=== PATIENT | female | born 1990 | race Caucasian/White ===

== ENCOUNTER 2016-09-07 10:53 | Observation (INO) | payer OTHER ==
[~2016-09-07] VITALS: Ht 167.6 cm; Wt 98.2 kg
[2016-09-07] VITALS (12 sets, daily range): BP systolic 87–122; BP diastolic 45–65; PULSE 87–113; RESP 18–20; O2SAT 96–100
--- NOTE | 2016-09-07 10:58 | ED.REPORT ---
HPI-Fever Date of Service Sep 07, 2016 ED Provider: Abner Villalta MD 26 y/o female 2 months post- presents to the ED via EMS complaining of left arm pain that radiates up her arm to her left breast since this morning. Her pain starts at the site of control implant in her left arm, which she got two weeks ago at [facility]. She was feeling fine until this morning. Her pain is exacerbated with minimal movement of the arm. Associated sx include left arm numbness, left arm swelling, headache, chills, nausea and tingling sensation in the left fingers. The pt also states "I feel very slowed down". The ED nurse described shaking rigors when she first arrived. The pt denies coughing, dysuria and taking antibiotics recently. The EMS recorded axillary temperature of 102 and BP in 130s and administered Zofran en route. The pt had a normal and delivery. Nursing Notes Stated Complaint: FEVER Nursing Notes Reviewed: Yes ([employer], meds not reconciled) Allergies: Coded Allergies: shellfish derived (Verified Allergy, Severe, Hives, 09/07/16) Uncoded Allergies: laundry detergent (Allergy, Severe, hives, throat swelling, 09/07/16) Scheduled Cholecalciferol (Vitamin D3) (Vitamin D3) 2,000 Unit Capsule 2,000 UNIT PO QAM Cyanocobalamin (Vitamin B-12) (Vitamin B-12) 1,000 Mcg Tablet 1,000 MCG PO QAM Fenugreek Seed Extract (Fenugreek) 500 Mg Capsule 500 MG PO QAM Omeprazole Magnesium (Prilosec Otc) 20 Mg Tablet.dr 20 MG PO QAM Pnv No.95/Ferrous Fum/Folic AC ( Multivitamin Tablet) 28 Mg Iron-800 Mcg Tablet 1 EACH PO QAM Sertraline HCl (Sertraline) 50 Mg Tablet 50 MG PO QAM General Time Seen by MD: 10:54 Chief Complaint Other (left arm pain) Hx Obtained From: Patient Arrived By: Ambulance Onset Occurred: 1 - 4 hours ago Symptom Duration: Since onset Quality: Painful (left arm) Radiation: Radiation present (to left breast) Severity: Current: Severe Severity: Maximum: Severe Recent Healthcare: No recent doctor visit Similar Sx Previous: No Past Medical History Past Medical History post depression and anxiety Past Surgical History none reported Smoking History Unknown if Ever Smoker Social History Other Social History: Ambulatory Status Independent Review of Systems Reports: tingling sensation in the left hand Constitutional: Reports: Chills, Fever Respiratory: Denies: Non-productive cough GI: Reports: Nausea, Denies: Vomiting Female: Denies: Dysuria Neurologic: Reports: Headache, Shaking Complete sys rev & neg: except as marked. Musculoskeletal: Reports: Extremity pain (left arm that radiates to left breast ), Extremity swelling (left arm) Physical Exam Initial Vital Signs Vital Signs (First) Date Time Temp Pulse Resp B/P Pulse Ox O2 Delivery O2 Flow Rate FiO2 09/07/16 11:13 38.7 107 20 122/63 97 Room Air Initial VS: Reviewed, Vital signs abnormal Head / Eyes: Atraumatic, Normocephalic Abdomen / GI: Soft, Non-tender, No guarding, No rebound, No distention Extremities: Vascular intact, Neuro intact Psychiatric: Mood/affect normal, Behavior normal, Normal thought content General/Constitutional: Awake, Alert, Not toxic appearing Behavior: Positive: Tearful Fatigued. Nurses described shaking rigors when she first arrived. Respiratory / Chest: Atraumatic, Breath sounds NL, Breath sounds = bilat, No respiratory distress, No rales, No rhonchi, No wheezing Medics noted pt was tachypneic but not in ED. Cardiovascular: Regular rhythm, Heart sounds NL, No murmurs, No rubs Heart Rate / Rhythm: Positive: Tachycardia No edema Upper Extremity / MS: Atraumatic, No deformity, Neurologic intact, Vascular intact Marked tenderness in entire left arm. Painful with any movement. No visible redness or external signs of cellulitis. No crepitus No axillary adenopathy. Interpretation & Diagnostics Interpretation & Diagnostics: Preliminary tech read-ultrasound of the left upper extremity negative for DVT or abscess PROCEDURE: US VENOUS ARM DUPLEX UNILATERAL, LEFT IMPRESSION: No deep venous thrombosis is identified in the left upper extremity. The left internal jugular vein is collapsed. Dictated by: Ralph Lucas M.D. on 09/07/2016 at 12:54 Approved by: Ralph Lucas M.D. on 09/07/2016 at 12:56 Lab Results Interpretation Result Diagram: 09/07/16 1220 09/07/16 1220 Test 09/07/16 11:15 09/07/16 12:20 Urine Color Bloody (YELLOW) Urine Appearance Slightly cloudy Urine pH 7.0 (5.0-8.0) Urine Specific [place] 1.015 (1.003-1.035) Urine Protein Negativemg/dL (NEG,TRACE) Urine Glucose (UA) Negativemg/dL (NEGATIVE) Urine Ketones Negativemg/dL (NEGATIVE) Urine Occult Blood Large (NEGATIVE) Urine Nitrite Negative (NEGATIVE) Urine Bilirubin Negative (NEGATIVE) Urine Urobilinogen Normalmg/dL (NORMAL) Urine Leukocyte Esterase Small (NEGATIVE) Urine RBC >50/hpf (0-2) Urine WBC 6-10/hpf (0-5) Urine Epithelial Cells Occasional/hpf (NONE-MOD) Urine Crystals None seen (NONE SEEN) Urine Bacteria Few/hpf (NONE-FEW) Urine Hyaline Casts None/lpf (NONE) Urine Granular Casts None seen (NONE SEEN) Urine Waxy Casts None seen (NONE SEEN) Urine Red Blood Cell Casts None seen (NONE SEEN) Urine White Blood Cell Casts None seen (NONE SEEN) Urine Mucus None seen (None Seen) Urine Trichomonas None seen (NONE SEEN) Urine Yeast None (NONE SEEN) Urine Culture Reflexed Indicated White Blood Count 12.2th/mm3 (3.8-10.1) Red Blood Count 4.27mil/mm3 (3.90-5.20) Hemoglobin 11.4g/dL (12.0-15.6) Hematocrit 34.4% (35.0-46.0) Mean Corpuscular Volume 80.6fL (81-100) Mean Corpuscular Hemoglobin 26.7pg (27.0-35.0) Mean Corpuscular Hemoglobin Concent 33.1% (32.0-37.0) Red Cell Distribution Width 14.9% (12.3-15.4) Platelet Count 270bil/L (150-400) Neutrophils (%) (Auto) 85.2% (40-74) Lymphocytes (%) (Auto) 6.7% (14-46) Monocytes (%) (Auto) 6.9% (4-12) Eosinophils (%) (Auto) 0.8% (0-5) Basophils (%) (Auto) 0.2% (0-3) Sodium Level 140mEq/L (134-144) Potassium Level 4.0mEq/L (3.5-5.2) Chloride Level 104mEq/L (97-108) Carbon Dioxide Level 18mmol/L (18-29) Blood Urea Nitrogen 11mg/dL (6-20) Creatinine 0.83mg/dL (0.57-1.00) Estimat Glomerular Filtration Rate 117mL/min (>59) Glucose Level 109mg/dL (60-99) Lactic Acid Level 1.9mmol/L (0.4-2.0) Calcium Level 8.9mg/dL (8.5-10.1) Total Bilirubin 0.3mg/dL (0.0-1.2) Aspartate Amino Transf (AST/SGOT) 18U/L (0-50) Alanine Aminotransferase (ALT/SGPT) 17U/L (0-32) Alkaline Phosphatase 118U/L (25-150) Total Protein 6.5g/dL (6.4-8.4) Albumin 3.7g/dL (3.4-5.0) Procalcitonin 0.05ng/mL (0.00-0.08) Lab Results Interpretation: CBC positive leukocytosis CMP normal Lactic acid normal except blood cultures 2 pending UA is , urine does have 6-10 white cells and some blood, no clinical symptoms-culture pending ECG Interpretation ECG Interpretation: Sinus tachycardia. Rate 108. Time: 11:41 Interpreted by: ED physician X-Ray Chest Interpretation Chest Xray Interpretation: IMPRESSION: Negative chest. No acute cardiopulmonary process is evident. Dictated by: Deangelo Mendoza M.D. on 09/07/2016 at 10:32 Approved by: Deangelo Mendoza M.D. on 09/07/2016 at 10:33 View: Portable, 1 view Interpretation / Wet Read by: Interpret - Radiologist Re-Eval/Medical Decision Med Decision/Clinical Course This is a pleasant 26-year-old female who is 2 months presents febrile with possible sepsis via EMS. Patient just recently had a implantable control placed in the left arm in the past roughly 10 days at [place], and did not feel well yesterday, and today developed fever, breaking chills, terrible left arm pain, worse with any movement, and also developed a headache and just felt lousy. She is notably tachycardic, had a fever of 102 axillary in the field, it appeared moderately ill. She received almost 2 L of fluid by EMS, as having rigors on arrival. Hour when I see her, she does not appear toxic-just fatigued. She is tachycardic, no murmurs. Her lungs are clear, abdomen soft nontender, she denies any symptoms or abdominal pain. She has no breast pain or discomfort and she is pumping milk with no signs of mastitis. She has marked discomfort in the left arm. Interestingly I do not appreciate external visible signs of cellulitis, however the area is particularly tender around the insertion site for the control high making a high probability that this is the focus of infection clinically making the patient septic. The no subcutaneous air, no axillary adenopathy, no palpable fluid collection or abscess. An ultrasound was negative for DVT flank abscess. The patient received fluids, but developed hypotension in the department the briefly drop in blood pressure to 80, but was fluid responsive blood pressure back up to 100. Her lactic acid is normal. She does have a leukocytosis. Chest x-ray is negative, urine is underwhelming and is typical -I do not suspect probable urine given the marked symptoms in the left arm clinically point had a localized infection. I talked with the OB on-call, given the patient's frankly septic with febrile, hypotension, leukocytosis the plan is IV a box with Zosyn and vancomycin, the plan inpatient admission to the hospitalist service, and OB will come see and see if they can locally remove the implant. At this point patient has received 3 liters of crystalloid (1st given by EMS, 2nd started by EMS and completed in the ED, 3rd liter given by ED) Source of Hx: Old records Re-Evaluation/Progress : Time of Eval: 12:46 Re-Evaluation/Progress Note: Rechecked pt. Discussed lab results, imaging results, diagnosis and plan to admit. Pt understands and agrees with the plan for admission. All questions addressed. Consultation #1: Referral / Consult Name: Kilo Moya MD Career Services Director: Will see in office, Agrees with eval, Agrees with plan Note: Dr. Moya, OB, recommends giving the pt antibiotics and discharging to follow up in the office to have the implant removed. Consultation #2: Referral / Consult Name: Kilo Moya MD Call Returned at: 12:44 Career Services Director: Will see patient, Agrees with eval, Agrees with plan Note: Dr. Moya informed the pt is hypotensive. He will see her in the hospital. Consultation #3: Referral / Consult Name: Frederick Starr Consulted With: Hospitalist Call Returned at: 13:50 Career Services Director: Will see patient, Agrees with eval, Agrees with plan, Accepts admit Differential Diagnosis: Positive: Cellulitis, Sepsis, Negative: Gastroenteritis, Infected decubitus ulcer, Meningococcemia, Pelvic inflam disease, Pericarditis, Pneumonia, Pyelonephritis Counseled Regarding: Diagnosis, Lab results, Need for admission Discharge & Departure Impression: Primary Impression: Sepsis Sepsis type: sepsis due to unspecified organism Qualified Code: A41.9 - Sepsis, unspecified organism Additional Impression: Soft tissue infection Disposition: ADMITTED TO HOSPITAL Discharge Condition All VS Reviewed: Yes Referrals: [facility] Crit Care Except Billable Proc Time Spent: 30-74 minutes Services Performed: Patient management by me, Time spent at bedside, Reviewing test results, Reviewing imaging, Discussing patient care, Documentation in record, Other Critical Care Notes: Patient became hypotensive (and was already tachycardic and febrile) and required fluid resuscitation Scribe Attestation Portions of this note were transcribed by Tom Lan. I,, personally performed the history, physical exam and medical decision-making;I reviewed and confirmed the accuracy of the information in the transcribed note. Signed by Joel Purcell. 09/07/16 13:54 Abner Villalta MD Sep 07, 2016 10:58 Tom Lan Sep 07, 2016 11:36
--- NOTE | 2016-09-07 11:34 | DRSVH ---
PROCEDURE: X-RAY CHEST ONE VIEW, PORTABLE ([id number]) INDICATIONS: fever TECHNIQUE: One view of the chest was acquired. COMPARISON: None. FINDINGS: Surgical changes and devices: None. Lungs and pleura: No pleural effusions or pneumothorax. Lungs are clear. There may be a few calcif ied granulomas within the right lung. Mediastinum: Mediastinal contours appear normal. Heart size is normal. Bones and chest wall: No suspicious bony lesions. Overlying soft tissues appear unremarkable. IMPRESSION: Negative chest. No acute cardiopulmonary process is evident. Dictated by: Deangelo Mendoza M.D. on 09/07/2016 at 10:32 Approved by: Deangelo Mendoza M.D. on 09/07/2016 at 10:33
[2016-09-07 11:38] LABS: APPEARANCE,URINE SLIGHTLY CLOUDY (CLEAR,HAZY); COLOR,URINE BLOODY (YELLOW)
[2016-09-07 11:39] LABS: OCCULT BLOOD,URINE LARGE (NEGATIVE); UROBILINOGEN,URINE NORMAL (NORMAL)
[2016-09-07] MEDS ORDERED: Ondansetron 2 mg/mL 2 mL Inj IVPUSH ONE (12:05)
[2016-09-07] MEDS: HYDROmorphone 0.5 mg/0.5 mL iSecure Syringe IVPUSH PRN ×2 (12:35→14:23)
[2016-09-07 12:37] LABS: BASOPHILS % (AUTO) 0.2 % (0-3); EOSINOPHILS % (AUTO) 0.8 % (0-5); MONOCYTES % (AUTO) 6.9 % (4-12); Mean Corpuscular Hemoglobin 26.7 pg (27.0-35.0); Mean Corpuscular Volume 80.6 fL (81-100); NEUTROPHILS % (AUTO) 85.2 % (40-74); Platelet Count 270 bil/L (150-400)
[2016-09-07] MEDS ORDERED: Piperacillin-Tazo 3.375 Gm Inj 3.375 GM in Dextrose 5% Minibag Plus 50 ML IV ONE (12:40)
[2016-09-07] MEDS ORDERED: Vancomycin Dose per Pharmacist XX ONE (12:40)
[2016-09-07] MEDS ORDERED: 0.9% Sodium Chloride 1,000 ML IV ONE (12:40)
--- NOTE | 2016-09-07 12:58 | DRSVH ---
PROCEDURE: US VENOUS ARM DUPLEX UNILATERAL, LEFT INDICATIONS: swelling pain LUE ro DVT or abscess (s/p implant) TECHNIQUE: Real-time imaging, as well as color and pulse Doppler interrogation, was performed of the left upper extremity deep veins from the inferior neck to the antecubital fossa. COMPARISON: [facility], CR, XR CHEST 1VW (PORTABLE), 09/07/2016, 11:08. FINDINGS: The internal jugular vein is collapsed. The visualized portions of the subclavian vein, ax illary, and brachial veins are free of intraluminal thrombus. Where physically possible, the veins a re normally compressible. Color and pulse Doppler demonstrate normal intraluminal flow, with expecte d phasicity and pulsatility. Additional scanning of the cephalic and basilic veins of the superficia l system demonstrate normal compressibility, without thrombus. IMPRESSION: No deep venous thrombosis is identified in the left upper extremity. The left internal ju gular vein is collapsed. Dictated by: Ralph Lucas M.D. on 09/07/2016 at 12:54 Approved by: Ralph Lucas M.D. on 09/07/2016 at 12:56
[2016-09-07] MEDS ORDERED: Vancomycin Inj 2,000 MG in 0.9% Sodium Chloride 500 ML IV ONE (13:15)
[2016-09-07] MEDS ORDERED: PNV1TABL PO (13:30)
[2016-09-07] MEDS ORDERED: 0.9% Sodium Chloride 1,000 ML IV SCH (13:30)
[2016-09-07] MEDS ORDERED: CHOL200047 PO (13:30)
[2016-09-07] MEDS ORDERED: FENU500C PO (13:30)
[2016-09-07] MEDS ORDERED: CYAN10008 PO (13:30)
[2016-09-07] MEDS ORDERED: OMEP20TA24 PO (13:30)
[2016-09-07] MEDS ORDERED: SERT50TA9 PO (13:30)
[2016-09-07] MEDS ORDERED: Polyethylene Glycol (PEG) 17 Gm Powder PO PRN (13:55)
[2016-09-07] MEDS ORDERED: Ondansetron 2 mg/mL 2 mL Inj IVPUSH PRN (13:55)
[2016-09-07] MEDS ORDERED: Alum-Mag Hydrox-Simeth 30 mL Suspension PO PRN (13:55)
[2016-09-07] MEDS ORDERED: Vancomycin Dose per Pharmacist XX SCH (14:55)
--- NOTE | 2016-09-07 15:01 | PCM.CONPHA ---
Subjective Date of Service: Sep 07, 2016 Reason for Pharmacy Consult: Vancomycin Dosing Objective Vital Signs Date Time Temp Pulse Resp B/P Pulse Ox O2 Delivery O2 Flow Rate FiO2 09/07/16 14:03 37.2 97 19 111/57 98 Room Air 09/07/16 12:37 38 99 18 87/45 96 Room Air 09/07/16 11:45 38.1 104 20 97/52 97 Room Air 09/07/16 11:18 38.7 113 20 122/63 100 09/07/16 11:13 38.7 107 20 122/63 97 Room Air Weight (Kilograms): 94.09 Height (Feet): 5 Height (Inches): 6 Test 09/07/16 11:15 09/07/16 12:20 Urine Color Bloody (YELLOW) Urine Appearance Slightly cloudy Urine pH 7.0 (5.0-8.0) Urine Specific [place] 1.015 (1.003-1.035) Urine Protein Negativemg/dL (NEG,TRACE) Urine Glucose (UA) Negativemg/dL (NEGATIVE) Urine Ketones Negativemg/dL (NEGATIVE) Urine Occult Blood Large (NEGATIVE) Urine Nitrite Negative (NEGATIVE) Urine Bilirubin Negative (NEGATIVE) Urine Urobilinogen Normalmg/dL (NORMAL) Urine Leukocyte Esterase Small (NEGATIVE) Urine RBC >50/hpf (0-2) Urine WBC 6-10/hpf (0-5) Urine Epithelial Cells Occasional/hpf (NONE-MOD) Urine Crystals None seen (NONE SEEN) Urine Bacteria Few/hpf (NONE-FEW) Urine Hyaline Casts None/lpf (NONE) Urine Granular Casts None seen (NONE SEEN) Urine Waxy Casts None seen (NONE SEEN) Urine Red Blood Cell Casts None seen (NONE SEEN) Urine White Blood Cell Casts None seen (NONE SEEN) Urine Mucus None seen (None Seen) Urine Trichomonas None seen (NONE SEEN) Urine Yeast None (NONE SEEN) Urine Culture Reflexed Indicated White Blood Count 12.2th/mm3 (3.8-10.1) Red Blood Count 4.27mil/mm3 (3.90-5.20) Hemoglobin 11.4g/dL (12.0-15.6) Hematocrit 34.4% (35.0-46.0) Mean Corpuscular Volume 80.6fL (81-100) Mean Corpuscular Hemoglobin 26.7pg (27.0-35.0) Mean Corpuscular Hemoglobin Concent 33.1% (32.0-37.0) Red Cell Distribution Width 14.9% (12.3-15.4) Platelet Count 270bil/L (150-400) Neutrophils (%) (Auto) 85.2% (40-74) Lymphocytes (%) (Auto) 6.7% (14-46) Monocytes (%) (Auto) 6.9% (4-12) Eosinophils (%) (Auto) 0.8% (0-5) Basophils (%) (Auto) 0.2% (0-3) Sodium Level 140mEq/L (134-144) Potassium Level 4.0mEq/L (3.5-5.2) Chloride Level 104mEq/L (97-108) Carbon Dioxide Level 18mmol/L (18-29) Blood Urea Nitrogen 11mg/dL (6-20) Creatinine 0.83mg/dL (0.57-1.00) Estimat Glomerular Filtration Rate 117mL/min (>59) Glucose Level 109mg/dL (60-99) Lactic Acid Level 1.9mmol/L (0.4-2.0) Calcium Level 8.9mg/dL (8.5-10.1) Total Bilirubin 0.3mg/dL (0.0-1.2) Aspartate Amino Transf (AST/SGOT) 18U/L (0-50) Alanine Aminotransferase (ALT/SGPT) 17U/L (0-32) Alkaline Phosphatase 118U/L (25-150) Total Protein 6.5g/dL (6.4-8.4) Albumin 3.7g/dL (3.4-5.0) Procalcitonin 0.05ng/mL (0.00-0.08) Assessment/Plan Assessment/Plan Vancomycin management per pharmacy Indication: Sepsis from implanted control device Trough goal: 15-20 Pertinent info: - Patient is post -- patient has been instructed NOT to breastfeed (pump+ dump) per Dr. Villalta while receiving vancomycin. - Plan to remove implanted device while inpatient. - Patient received vancomycin 2000 mg IV loading dose x1 in ED. Give vancomcyin 1000 mg IV Q8H starting at 2200. This will give a trough of ~15 per pharmacokinetic modeling. Patient is at risk for accumulation due to increased BMI. Vancomycin trough has been scheduled for 09/08/16 at 2130. Pharmacy to continue to monitor and dose vancomcyin. Thank you, Sebas Blackburn Pharmacist Sebas Blackburn Sep 07, 2016 15:01
--- NOTE | 2016-09-07 16:15 | PCM.HPMED ---
Subjective Date of Service Sep 07, 2016 Primary Provider: Admitting Physician: Frederick Starr DO Primary Care Physician: Nathaniel-Tirso Shields Attending Physician: Frederick Starr DO Chief Complaint: Left arm pain associated with fever & chills History of Present Illness: Patient is a 26-year-old female now 2 months who presented to the ED via EMS complaining of severe left arm plain which began developing earlier this morning. She states she had received her control implant approximately 2 weeks ago at the [facility] which had initially proceeded without any complications. Pain had been minimal and she had thought resolved until this morning when she awoke with severe pain and additionally experienced associated sweats and chills more diffusely. She notes the pain radiates to left breast in addition to down left arm. She has additionally been experiencing headaches as well as nausea and vomiting. In emergency department she was noted to be febrile, as well as mildly hypotensive. Imaging studies did not demonstrate any evidence of DVT, but there is certainly concern for infection related to Impression. During history obtained from patient while in hospital floor she confirmed recent history detailed above. She denied any significant improvement in pain though it had been treated some with IV medications provided in the emergency department. She denied any overt chest pains or shortness of breath during my evaluation. He did note feeling a little bit slowed down and fatigued which she has all day. She is currently on her menses and notes spotting but otherwise had no symptoms of bleeding or other side effects associated with since injection. Review of Systems: A 10 point review of systems was conducted and entirely negative excepting pertinent positives and negatives included in above history of present illness Allergies Coded Allergies: shellfish derived (Verified Allergy, Severe, Hives, 09/07/16) Uncoded Allergies: laundry detergent (Allergy, Severe, hives, throat swelling, 09/07/16) Home Medications Cholecalciferol (Vitamin D3) (Vitamin D3) 2,000 Unit Capsule 2,000 UNIT PO QAM Cyanocobalamin (Vitamin B-12) (Vitamin B-12) 1,000 Mcg Tablet 1,000 MCG PO QAM Fenugreek Seed Extract (Fenugreek) 500 Mg Capsule 500 MG PO QAM Omeprazole Magnesium (Prilosec Otc) 20 Mg Tablet.dr 20 MG PO QAM Pnv No.95/Ferrous Fum/Folic AC ( Multivitamin Tablet) 28 Mg Iron-800 Mcg Tablet 1 EACH PO QAM Sertraline HCl (Sertraline) 50 Mg Tablet 50 MG PO QAM Nexplanon implant PMH post depression anxiety Surgical History none reported Family History Family history significant for father having brain cancer, glioblastoma Mother and father both having vascular disease She reports no history of hypercoagulable state or clots. She has a number of aunts with breast cancer she is unsure of her BRCA status Social History Hx Alcohol Use: No Hx Substance Use: No Smoking Status: Never Smoker, Unknown if Ever Smoker Exam Vital Signs Vital Sign - Last Date Time Temp Pulse Resp B/P Pulse Ox O2 Delivery O2 Flow Rate FiO2 09/07/16 16:01 36.8 87 18 99/64 97 Room Air General: Alert, Oriented X3, Cooperative, Moderate Distress Eyes: PERRLA Mouth: Mucous Membr Moist/[place] Chest & Lungs: Clear to auscultation & percussion Cardiovascular: Regular Rate/Rhythm Abdomen: Non-tender, Non-distended Skin: Other ((+) mildly erythma but severe tenderness of skin overlying nexplanon implantation site on medial aspect of arm between bicept/tricepts muscle) Neurological: Grossly Neurologically Intact Lab and Diagnostics Result Diagram: 09/07/16 1220 09/07/16 1220 Assessment & Plan 26-year-old female with what appears to be cellulitic infection related to implantation of Nexplanon 2 weeks prior: #. Severe arm pain with concern for cellulitis - Patient provided both Zosyn and vancomycin in the emergency department which will be continued on admission - Pain management achieved with opiate-based pain medications in addition to Tylenol, this will be continued - Given low blood pressure associated with this infection we will continue intravenous hydration - Nexplanon has been removed by INFRASTRUCTURE ARCHITECT consult, and will be sent for culture # control/family planning - Patient will require alternative control method following removal of Nexplanon - We will discuss options prior to discharge. Pain Evaluation: Adequate Pain Control GI Prophylaxis: Not indicated VTE Mechanical Devices: Intermittant Pneumatic CD Resuscitation Status: CPR: Attempt Resuscitation Time spent 55 minutes Frederick Starr DO Sep 07, 2016 16:15
[2016-09-07] MEDS: HYDROcodone-APAP 5-325 mg Tablet PO PRN ×2 (16:29→17:26)
[2016-09-07] MEDS: 0.9% Sodium Chloride 1,000 ML IV SCH (16:29)
[2016-09-07] MEDS ORDERED: Lidocaine 2% 20 mg/mL 5 mL Cardiac Syringe ONE (17:28)
[2016-09-07] MEDS: Piperacillin-Tazo 3.375 Gm Inj 3.375 GM in Dextrose 5% Minibag Plus 50 ML IV SCH (18:14)
[2016-09-07] MEDS ORDERED: diphenhydrAMINE 25 mg Capsule PO PRN (18:15)
--- NOTE | 2016-09-07 18:39 | HP ---
[address] [address] HISTORY AND PHYSICAL PATIENT: JEFFERSON ARBOLEDA : 1990 MR#: [id number] ADMIT: 09/07/2016 JOB ID: [id number] HISTORY OF PRESENT ILLNESS: The patient is a 26-year-old, 2, para 2, with recent induction of labor and spontaneous vaginal delivery at 41 weeks two months ago at [facility]. The patient was induced for post dates. The delivery was uncomplicated. There was one small laceration repaired. She has been seen for contraceptive purposes at [facility] two weeks ago when she had Nexplanon insert placed in her left arm. The patient was doing well for two weeks. This morning she presented to the emergency department with complaint of severe pain in the left arm that is getting worse with movement of the arm, left arm numbness, swelling, headache, chills, nausea. She describes maximum temperature as being 102. She denies pelvic pain, vaginal discharge, abnormal bleeding. She stated that she started her menstrual period two days ago. She denies dysuria, urinary urgency and frequency. The patient is breast-feeding. She is using a pump to empty her breasts and she denies any problems with milk production or any signs of mastitis. PAST MEDICAL HISTORY: depression and anxiety. PAST SURGICAL HISTORY: Negative. SOCIAL HISTORY: She denies smoking, alcohol, or illicit or recreational drug use. PHYSICAL EXAMINATION: Vital signs: Temperature 37.2, pulse 97, respiratory rate 19, and blood pressure 111/57. General: The patient is alert, awake, oriented x3. Cooperative. Mild distress. HEENT: PERRLA. Chest: Clear bilaterally. No adventitious sounds. Cardiovascular: Regular rate and rhythm. Abdomen: Nontender and nondistended. No rebound, no rigidity. No uterine or bladder tenderness. Pelvic exam deferred. The exam of the left arm shows a palpable Nexplanon insert placed subcutaneously: There is no local redness or any signs of infection on the exam of the site of the placement. LABORATORY: WBC count 12.2, hemoglobin 11.4, hematocrit 34.4, platelets 270. ASSESSMENT AND PLAN: This is a 26-year-old 2, para 2 status post spontaneous vaginal delivery two months ago, status post Nexplanon placement two weeks ago. Presents with unusual severe reaction to Nexplanon associated with pain at the site of insertion radiating to her left underarm and left chest, left arm numbness, left arm swelling, and chills. The patient has been started on antibiotics by the ER provider. She is getting Zosyn and vancomycin. We will repeat the labs tomorrow. The Nexplanon will be removed as per patient's request. Alternative methods of contraception were briefly discussed with the patient.
--- NOTE | 2016-09-07 18:42 | OP ---
[address] [address] OPERATIVE REPORT PATIENT: JEFFERSON ARBOLEDA : 1990 MR#: [id number] ADMIT: 09/07/2016 JOB ID: [id number] DATE OF SURGERY: 09/07/2016 SURGEON: Kilo Moya MD PROCEDURE: Removal of the Nexplanon implant. PREOPERATIVE DIAGNOSIS(ES): Contraceptive management. Reaction to Nexplanon. POSTOPERATIVE DIAGNOSIS(ES): Contraceptive management. Reaction to Nexplanon. COMPLICATIONS: None. PROCEDURE: The patient's site of insertion was examined and the Nexplanon was located. The procedure was explained to the patient. The risks and benefits were explained. Alternative methods of contraception were discussed. Informed consent for removal of Nexplanon was obtained. With the patient appropriately positioned in the bed, the site of removal was prepped with chlorhexidine under sterile conditions. The area of the incision was premedicated with topical injection of 2% lidocaine, a total of 4 mL of lidocaine was used. Using an 11 blade scalpel the skin was incised about 3 mm in size. The edge of the Nexplanon was identified and was gently protruded through the incision and removed using a hemostat. It was sent to Pathology. The hemostatic dressing was applied. Postprocedure instructions were discussed. The patient tolerated the procedure well, without any complications.
[2016-09-07] MEDS: Vancomycin Inj 1,000 MG in IV Premix 1 EACH IV SCH (22:24)
[2016-09-08] VITALS (10 sets, daily range): BP systolic 90–132; BP diastolic 51–77; PULSE 76–115; RESP 18; O2SAT 96–98
[2016-09-08] MEDS: Piperacillin-Tazo 3.375 Gm Inj 3.375 GM in Dextrose 5% Minibag Plus 50 ML IV SCH (01:54)
[2016-09-08] MEDS: 0.9% Sodium Chloride 1,000 ML IV SCH ×2 (03:44→10:59)
[2016-09-08] MEDS: Vancomycin Inj 1,000 MG in IV Premix 1 EACH IV SCH (06:29)
--- NOTE | 2016-09-08 07:17 | PCM.PNMED ---
Subjective Date of Service Sep 08, 2016 Jovany Sandoval is a 26-year-old female that had a normal spontaneous vaginal delivery 2 months ago, and a Nexplanon implantation 2 weeks ago. She presented to the ED yesterday with pain and swelling around the site of the device in her left arm extending into the axilla and breast, with tingling and numbness in her left hand, nausea, and a white count of 12.2. The patient was started on IV Zosyn and vancomycin, and admitted. A venous ultrasound of the left upper extremity did not show any thrombi. Chest x-ray was unremarkable. Dr. Moya removed the Nexplanon device from her left arm. The patient continued to have fevers up to 39.5 overnight, with intermittent tachycardia into the low 100s, and asymptomatic hypotension.. This morning, patient states that her pain and nausea are improving, but continues to have chills. Exam Vital Signs Vital Sign - Last Date Time Temp Pulse Resp B/P Pulse Ox O2 Delivery O2 Flow Rate FiO2 09/08/16 05:55 107 09/08/16 05:02 36.9 18 90/51 96 Room Air Intake and Output 09/07/16 09/07/16 09/08/16 Cumulative From/Thru 15:00 23:00 07:00 09/07/16 11:13 - 09/08/16 06:22 Intake Total 2000 ml 3391 ml 5391 ml Output Total 1000 ml 1700 ml 2700 ml Balance 1000 ml 1691 ml 2691 ml Intake Oral 1892 ml 1892 ml IV Total 2000 ml 1499 ml 3499 ml Output Urine Total 1000 ml 1700 ml 2700 ml Exam Left upper extremity was without erythema, and no swelling was appreciated. Normal manager language strength, and sensation. Mild tenderness to upper left extremity and lateral left breast. Left breast is mildly erythematous. No breast discharge. No fluctuance or masses. Heart regular rate and rhythm, no murmurs. Lungs clear to auscultation bilaterally. No peripheral edema. IVs and Medications IV Fluids IV Zosyn, IV vancomycin, IV lactated Ringer's. Lab and Diagnostics Today's white count pending Result Diagram: 09/07/16 1220 09/07/16 1220 Microbiology Blood and urine cultures pending. Assessment & Plan 26-year-old female with what is likely mastitis, rather than an infection from the now removed Nexplanon - Patient provided both Zosyn and vancomycin in the emergency department - Pain management achieved with opiate-based pain medications in addition to Tylenol, this will be continued - Nexplanon has been removed and sent for culture # control/family planning -Patient does not intend to resume any sort of contraception. Her is planning on getting a vasectomy. GI Prophylaxis: Not indicated VTE Mechanical Devices: Intermittant Pneumatic CD Resuscitation Status: CPR: Attempt Resuscitation Attending Statement The patient was seen and examined together with Dr. Edvin Haynes DO on 2016 and I agree with the history, exam and plan as outlined in the note above. Edvin Haynes DO Sep 08, 2016 07:17 Tammie Mitchell MD Sep 14, 2016 13:20
[2016-09-08 08:02] LABS: Mean Corpuscular Hemoglobin 26.9 pg (27.0-35.0); NEUTROPHILS % (AUTO) 78.6 % (40-74); Platelet Count 252 bil/L (150-400)
[2016-09-08 08:03] LABS: BASOPHILS % (AUTO) 0.2 % (0-3); EOSINOPHILS % (AUTO) 1.3 % (0-5); MONOCYTES % (AUTO) 6.5 % (4-12)
[2016-09-08] MEDS ORDERED: [UNRECOGNIZED DRUG - OTHER] PO SCH (10:20)
[2016-09-08] MEDS: Multivit-Miner-Folic Acid-Iron Tablet PO SCH (10:59)
[2016-09-08] MEDS: HYDROcodone-APAP 5-325 mg Tablet PO PRN ×2 (11:00→20:45)
[2016-09-08] MEDS: Pantoprazole 20 mg ER24 Tablet PO SCH (11:01)
--- NOTE | 2016-09-08 14:29 | PCM.PNMED ---
Subjective Date of Service Sep 08, 2016 Subjective Patient notes significant improvement overnight. Denies any fever or chills currently. She is still having pain on left side now more pronounced lateral aspect of breast rather than brachial region of arm. Pain is in good control. Exam Vital Signs Vital Sign - Last Date Time Temp Pulse Resp B/P Pulse Ox O2 Delivery O2 Flow Rate FiO2 09/08/16 12:10 37.4 115 18 112/61 96 Room Air Intake and Output 09/07/16 09/07/16 09/08/16 Cumulative From/Thru 15:00 23:00 07:00 09/07/16 11:13 - 09/08/16 06:22 Intake Total 2000 ml 3391 ml 5391 ml Output Total 1000 ml 1700 ml 2700 ml Balance 1000 ml 1691 ml 2691 ml Intake Oral 1892 ml 1892 ml IV Total 2000 ml 1499 ml 3499 ml Output Urine Total 1000 ml 1700 ml 2700 ml Exam General: Alert, Oriented X3, Cooperative, No acute Distress Eyes: PERRLA Mouth: Mucous Membranes Moist/[place] Chest & Lungs: Clear to auscultation & percussion Cardiovascular: Regular Rate/Rhythm Abdomen: Non-tender, Non-distended Skin: Nexplanon now removed with small incision site present, minimal erythema present in brachial region. Lateral aspect of left breast however now demonstrating mild erythema and induration on palpation, consistent with diagnosis of mastitis. No waqar discharge from nipple is appreciated. Neurological: Grossly Neurologically Intact IVs and Medications Medications Reviewed: Medications were reviewed in detail Lab and Diagnostics Result Diagram: 09/08/1662409/08/16624 Microbiology Blood and urine cultures pending. Assessment & Plan 26-year-old female with what is likely mastitis, rather than an infection from the now removed Nexplanon - Patient initially provided both Zosyn and vancomycin in the emergency department given concern for severe cellulitis following Implantation. - It now appears that mastitis is more likely diagnosis, more common and easily treated. - Given patient's rapid stabilization, we will taper antibiotics to Augmentin at this time. We will consider again expanding coverage should any evidence either via blood cultures for culture of removed foreign body demonstrated evidence of MRSA or other resistant type of infection. - Intravenous fluids will be tapered at this time. - Consider discharge in a.m. patient is stable medically and cultures remain negative to complete course of oral antibiotic therapy. - Pain management achieved with opiate-based pain medications in addition to Tylenol, this will be continued # control/family planning -Patient does not intend to resume any sort of contraception. Her is planning on getting a vasectomy. Pain Evaluation: Adequate Pain Control GI Prophylaxis: Not indicated VTE Mechanical Devices: Venous Foot Pump Resuscitation Status: CPR: Attempt Resuscitation Time spent 30 minutes Frederick Starr DO Sep 08, 2016 14:29
[2016-09-08] MEDS: Amoxicillin-Clav 875-125 mg Tablet PO SCH (20:45)
[2016-09-08] MEDS ORDERED: Vancomycin Serum Trough XX ONE (21:30)
[2016-09-09 01:02] VITALS: BP 98/60; PULSE 65; RESP 18; O2SAT 96
[2016-09-09 04:43] VITALS: BP 106/65; PULSE 63; RESP 18; O2SAT 96
[2016-09-09 06:01] VITALS: PULSE 55
[2016-09-09 06:57] LABS: BASOPHILS % (AUTO) 0.4 % (0-3); EOSINOPHILS % (AUTO) 2.6 % (0-5); MONOCYTES % (AUTO) 10.8 % (4-12); Mean Corpuscular Hemoglobin 26.7 pg (27.0-35.0); Mean Corpuscular Volume 81.3 fL (81-100); NEUTROPHILS % (AUTO) 47.8 % (40-74); Platelet Count 247 bil/L (150-400)
[2016-09-09] MEDS: 0.9% Sodium Chloride 1,000 ML IV SCH (08:52)
[2016-09-09] MEDS: Amoxicillin-Clav 875-125 mg Tablet PO SCH (08:53)
[2016-09-09] MEDS: Pantoprazole 20 mg ER24 Tablet PO SCH (08:53)
[2016-09-09] MEDS: Multivit-Miner-Folic Acid-Iron Tablet PO SCH (08:53)
--- NOTE | 2016-09-09 09:24 | PCM.DC.MED ---
Discharge Summary Date of Service Sep 09, 2016 Dates of Hospitalization Date of Hospital Admission Sep 07, 2016 at 14:29 Date of Discharge: Sep 09, 2016 Providers: Admitting Physician: Frederick Starr DO Primary Care Physician: Tirso Steven Attending Physician: Frederick Starr DO Diagnosis at Time of Discharge Diagnosis at Time of Discharge Mastitis Consultations OBGYN, Procedures Other Diagnostics Date of Service: 09/07/16 1130 PROCEDURE: US VENOUS ARM DUPLEX UNILATERAL, LEFT INDICATIONS: swelling pain LUE ro DVT or abscess (s/p implant) TECHNIQUE: Real-time imaging, as well as color and pulse Doppler interrogation, was performed of the left upper extremity deep veins from the inferior neck to the antecubital fossa. COMPARISON: [facility], CR, XR CHEST 1VW (PORTABLE), 09/07/2016, 11: 08. FINDINGS: The internal jugular vein is collapsed. The visualized portions of the subclavian vein, axillary, and brachial veins are free of intraluminal thrombus. Where physically possible, the veins are normally compressible. Color and pulse Doppler demonstrate normal intraluminal flow, with expected phasicity and pulsatility. Additional scanning of the cephalic and basilic veins of the superficial system demonstrate normal compressibility, without thrombus. IMPRESSION: No deep venous thrombosis is identified in the left upper extremity. The left internal jugular vein is collapsed. Dictated by: Ralph Lucas M.D. on 09/07/2016 at 12:54 Brief History Patient is a 26-year-old female now 2 months who presented to the ED via EMS complaining of severe left arm plain which began developing earlier this morning. She states she had received her control implant approximately 2 weeks ago at the [facility] which had initially proceeded without any complications. Pain had been minimal and she had thought resolved until this morning when she awoke with severe pain and additionally experienced associated sweats and chills more diffusely. She notes the pain radiates to left breast in addition to down left arm. She has additionally been experiencing headaches as well as nausea and vomiting. In emergency department she was noted to be febrile, as well as mildly hypotensive. Imaging studies did not demonstrate any evidence of DVT, but there is certainly concern for infection related to Impression. During history obtained from patient while in hospital floor she confirmed recent history detailed above. She denied any significant improvement in pain though it had been treated some with IV medications provided in the emergency department. She denied any overt chest pains or shortness of breath during my evaluation. He did note feeling a little bit slowed down and fatigued which she has all day. She is currently on her menses and notes spotting but otherwise had no symptoms of bleeding or other side effects associated with since injection. Hospital Course Mastitis; - Patient initially provided both Zosyn and Vancomycin in the emergency department given concern for severe cellulitis following implantation of Nexplanon - Nexplanon was removed due to concern for this, however given presentation of erythema of breast on second day of hospitalization, in addition to lack of evidence of more severe infection based on negative blood and Nexplanon cultures in addition to patient's rapid medical stabilization - It now appears that mastitis is more likely diagnosis, more common and easily treated. - Pt transitioned to Augmentin orally which was well tolerated and continued to demonstrate clinical improvement, normalization of wbc count, and though she did exhibit one elevated temp night before discharge, sweats.chills resolved and vital signs were otherwise stable. - Pt discharged home with 1 additional week of Augmentin therapy - Benefits and risks of breast feeding while on this antibiotic was discussed with patient, pharmacy also provided additional information, and it was decided pt would restart breast feeding given known evidence/recommendations and her preference - She will observe her child for any evidence of allergic reaction to antibiotic. # control/family planning -Patient does not intend to resume any sort of contraception. Her is planning on getting a vasectomy - Barrior contraception recommended in the interim.. #Post depression/anxiety - Pt continued of SSRI during hospitalization and discharge. . Exam Vital Signs (Last) Date Time Temp Pulse Resp B/P Pulse Ox O2 Delivery O2 Flow Rate FiO2 09/09/16 06:01 55 09/09/16 04:43 36.8 18 106/65 96 Room Air Exam Pt in no distress, cooperative, feeling well Mild erythema and tenderness of left breast still present. Excision site of nexplanon removal well healing, no evidence on infection Test 09/07/16 11:15 09/07/16 12:20 09/08/16 06:25 09/08/16 21:52 Urine Color Bloody (YELLOW) Urine Appearance Slightly cloudy Urine pH 7.0 (5.0-8.0) Urine Specific [place] 1.015 (1.003-1.035) Urine Protein Negativemg/dL (NEG,TRACE) Urine Glucose (UA) Negativemg/dL (NEGATIVE) Urine Ketones Negativemg/dL (NEGATIVE) Urine Occult Blood Large (NEGATIVE) Urine Nitrite Negative (NEGATIVE) Urine Bilirubin Negative (NEGATIVE) Urine Urobilinogen Normalmg/dL (NORMAL) Urine Leukocyte Esterase Small (NEGATIVE) Urine RBC >50/hpf (0-2) Urine WBC 6-10/hpf (0-5) Urine Epithelial Cells Occasional/hpf (NONE-MOD) Urine Crystals None seen (NONE SEEN) Urine Bacteria Few/hpf (NONE-FEW) Urine Hyaline Casts None/lpf (NONE) Urine Granular Casts None seen (NONE SEEN) Urine Waxy Casts None seen (NONE SEEN) Urine Red Blood Cell Casts None seen (NONE SEEN) Urine White Blood Cell Casts None seen (NONE SEEN) Urine Mucus None seen (None Seen) Urine Trichomonas None seen (NONE SEEN) Urine Yeast None (NONE SEEN) Urine Culture Reflexed Indicated Lactic Acid Level 1.9mmol/L (0.4-2.0) Total Bilirubin 0.3mg/dL (0.0-1.2) Aspartate Amino Transf (AST/SGOT) 18U/L (0-50) Alanine Aminotransferase (ALT/SGPT) 17U/L (0-32) Alkaline Phosphatase 118U/L (25-150) Total Protein 6.5g/dL (6.4-8.4) Albumin 3.7g/dL (3.4-5.0) Procalcitonin 0.82ng/mL (0.00-0.08) Vancomycin Level Trough 6.0mcg/mL Test 09/09/16 06:46 White Blood Count 5.0th/mm3 (3.8-10.1) Red Blood Count 4.16mil/mm3 (3.90-5.20) Hemoglobin 11.1g/dL (12.0-15.6) Hematocrit 33.8% (35.0-46.0) Mean Corpuscular Volume 81.3fL (81-100) Mean Corpuscular Hemoglobin 26.7pg (27.0-35.0) Mean Corpuscular Hemoglobin Concent 32.8% (32.0-37.0) Red Cell Distribution Width 15.7% (12.3-15.4) Platelet Count 247bil/L (150-400) Neutrophils (%) (Auto) 47.8% (40-74) Lymphocytes (%) (Auto) 38.2% (14-46) Monocytes (%) (Auto) 10.8% (4-12) Eosinophils (%) (Auto) 2.6% (0-5) Basophils (%) (Auto) 0.4% (0-3) Sodium Level 142mEq/L (134-144) Potassium Level 4.3mEq/L (3.5-5.2) Chloride Level 112mEq/L (97-108) Carbon Dioxide Level 18mmol/L (18-29) Blood Urea Nitrogen 12mg/dL (6-20) Creatinine 0.79mg/dL (0.57-1.00) Estimat Glomerular Filtration Rate 124mL/min (>59) Glucose Level 99mg/dL (60-99) Calcium Level 9.0mg/dL (8.5-10.1) Microbiology Results Blood and urine cultures pending. Discharge Medications Discharge Medications Cholecalciferol (Vitamin D3) (Vitamin D3) 2,000 Unit Capsule 2,000 UNIT PO QAM ( Reported) Cyanocobalamin (Vitamin B-12) (Vitamin B-12) 1,000 Mcg Tablet 1,000 MCG PO QAM ( Reported) Fenugreek Seed Extract (Fenugreek) 500 Mg Capsule 500 MG PO QAM (Reported) Omeprazole Magnesium (Prilosec Otc) 20 Mg Tablet.dr 20 MG PO QAM (Reported) Pnv No.95/Ferrous Fum/Folic AC ( Multivitamin Tablet) 28 Mg Iron-800 Mcg Tablet 1 EACH PO QAM (Reported) Sertraline HCl (Sertraline) 50 Mg Tablet 50 MG PO QAM (Reported) Followup Plan Disposition: Home Follow-up plan Continue antibiotic therapy as prescribed Follow up with primary care/OBGYN provider for further evalaution within 1 week of discharge. Discharge Diet: No restrictions Discharge Activity: No restrictions Follow-up with PCP in: 1 week Time spent 40 minutes copies to: [facility] Benjamin P DO Sep 09, 2016 09:24
[2016-09-09] MEDS ORDERED: AGM875T PO (09:28)
--- NOTE | 2016-09-09 09:28 | PCM.DIMED ---
Discharge Instructions Date of Service Sep 09, 2016 Dates of Hospitalization Sep 07, 2016 at 14:29 Discharge Diagnosis Discharge Diagnosis Mastitis Diet Discharge Diet: No restrictions Activity Discharge Activity: No restrictions Call your provider Call your provider for: Fever or Chills Patient Instructions Follow-up plan Continue antibiotic therapy as prescribed Follow up with primary care/OBGYN provider for further evalaution within 1 week of discharge. Follow-up with PCP in: 1 week Frederick Starr DO Sep 09, 2016 09:28
== END 2016-09-09 11:30 | disposition home or self-care (01) ==
LOC: EDBD 10:53 → SED 10:53 → MPC 14:29
PROVIDERS: ADMIT Family Medicine; ATTEND Family Medicine
DX: N61.0 Mastitis without abscess (principal); T38.5X5A Adverse effect of other estrogens and progestogens, initial encounter; F53 Mental and behavioral disorders associated with the puerperium, not elsewhere classified; O99.345 Other mental disorders complicating the puerperium; F41.9 Anxiety disorder, unspecified